=== PATIENT | female | born 1995 | race African-American/Black ===

== ENCOUNTER 2018-09-05 08:19 | Emergency (ER) | payer OTHER ==
[~2018-09-05] VITALS: Ht 160 cm; Wt 77.1 kg
--- NOTE | ~2018-09-05 | EKG ---
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
[2018-09-05] MEDS ORDERED: ACCUNEB SO1.25 MG/1 INH (08:32)
[2018-09-05] MEDS ORDERED: MUCINEX100 MG PO (11:28)
[2018-09-05] MEDS ORDERED: FLONASE 0.05%50 MCG NASAL (11:28)
[2018-09-05 11:35] VITALS: BP 90/54
== END 2018-09-05 11:35 | disposition home or self-care (01) ==
LOC: ER 08:19
DX: J06.9 Acute upper respiratory infection, unspecified (principal); F17.210 Nicotine dependence, cigarettes, uncomplicated

== ENCOUNTER 2019-07-31 08:35 | Emergency (ER) | payer OTHER ==
[~2019-07-31] VITALS: Ht 157.5 cm; Wt 81.7 kg
[~2019-07-31 08:35] MED LIST: ACCUNEB SO1.25 MG/1 INH; FLONASE 0.05%50 MCG NASAL; MUCINEX100 MG PO
[2019-07-31 08:36] VITALS: BP 129/81
== END 2019-07-31 09:40 | disposition home or self-care (01) ==
LOC: ER 08:35
DX: J06.9 Acute upper respiratory infection, unspecified (principal); K21.9 Gastro-esophageal reflux disease without esophagitis; F17.210 Nicotine dependence, cigarettes, uncomplicated

== ENCOUNTER 2020-03-20 12:11 | Emergency (ER) | payer OTHER ==
[~2020-03-20] VITALS: Ht 157.5 cm; Wt 88.5 kg
[2020-03-20 12:27] LABS: URINE BILIRUBIN NEGATIVE (Negative); URINE BLOOD NEGATIVE (Negative); URINE CLARITY CLEAR; URINE COLOR YELLOW; URINE GLUCOSE-RANDOM* NEGATIVE (Negative); URINE KETONES NEGATIVE (Negative); URINE LEUKOCYTES-REFLEX NEGATIVE (Negative); URINE NITRITE-REFLEX NEGATIVE (Negative); URINE PROTEIN (DIPSTICK) NEGATIVE (Negative); URINE SPECIFIC GRAVITY >= 1.030 (1.005-1.035); URINE UROBILINOGEN 0.2 E.U./dl (0.2-1.0)
[2020-03-20] MEDS ORDERED: METFORMIN HCL500 M3 PO (12:31)
[2020-03-20 14:28] LABS: ABSOLUTE NEUTROPHILS 4.3 thou/uL (1.4-8.2); EOSINOPHILS 4.2 % (0.0-3.0); HEMATOCRIT 43.4 % (37.0-47.0); HEMOGLOBIN 14.9 gm/dL (12.0-15.0); LYMPHOCYTES 42.1 % (24.0-44.0); MCH 32.4 pg (26.0-34.0); MCHC 34.3 g/dL (28.0-37.0); MCV 94.6 fL (80.0-100.0); MONOCYTES 5.8 % (1.0-8.0); PLATELET COUNT 231 thou/uL (150-400); POLYS 46.9 % (36.0-66.0); RBC 4.59 mil/uL (4.20-5.00); WBC 9.2 thou/uL (4.0-11.0)
[2020-03-20 14:36] LABS: CALCIUM 8.5 mg/dL (8.5-10.1); CREATININE 0.8 mg/dL (0.6-1.0); POTASSIUM 3.7 mmol/L (3.5-5.1)
[2020-03-20 14:42] LABS: ALBUMIN 3.8 g/dL (3.4-5.0); TOTAL BILIRUBIN 0.2 mg/dL (<0.1-1.0); TOTAL PROTEIN 7.1 g/dL (6.4-8.2)
[2020-03-20] MEDS ORDERED: IBUPROFEN 600600 M1 PO (14:51)
[2020-03-20 15:14] VITALS: BP 126/78
== END 2020-03-20 15:20 | disposition home or self-care (01) ==
LOC: ER 12:11
PROVIDERS: Nurse Practitioner Family
DX: R10.2 Pelvic and perineal pain (principal); R10.30 Lower abdominal pain, unspecified; K62.89 Other specified diseases of anus and rectum; K21.9 Gastro-esophageal reflux disease without esophagitis; F17.210 Nicotine dependence, cigarettes, uncomplicated; Z79.899 Other long term (current) drug therapy

== ENCOUNTER 2020-04-14 10:37 | Emergency (ER) | payer OTHER ==
[~2020-04-14] VITALS: Ht 160 cm; Wt 88.0 kg
[~2020-04-14 10:37] MED LIST changes: +IBUPROFEN 600600 M1 PO; +METFORMIN HCL500 M3 PO
[2020-04-14 12:58] VITALS: BP 138/92
--- NOTE | 2020-04-17 08:23 | EKG ---
[facility] [place] [address] ELECTROCARDIOGRAM REPORT Name: SHANELLE ALAS Room #: [facility]#: [id number] Admission: 04/14/20 Attend Phys: Discharge: 04/14/20 Date of : [birth year] Report #: [id number] THIS REPORT FOR: cc: JILLIAN - Cecelia family physician/PCP JILLIAN - Cecelia family physician/PCP Davion Lamar MD 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
== END 2020-04-14 12:59 | disposition home or self-care (01) ==
LOC: ER 10:37
DX: R07.89 Other chest pain (principal); M54.9 Dorsalgia, unspecified; R42 Dizziness and giddiness; K21.9 Gastro-esophageal reflux disease without esophagitis; E66.9 Obesity, unspecified; F17.210 Nicotine dependence, cigarettes, uncomplicated

== ENCOUNTER 2021-03-31 11:50 | Emergency (ER) | payer OTHER ==
[~2021-03-31] VITALS: Ht 157.5 cm; Wt 83.0 kg
[2021-03-31 12:29] LABS: URINE BILIRUBIN NEGATIVE (Negative); URINE BLOOD 3+ (Negative); URINE CLARITY CLEAR; URINE COLOR YELLOW; URINE GLUCOSE-RANDOM* NEGATIVE (Negative); URINE KETONES NEGATIVE (Negative); URINE LEUKOCYTES-REFLEX TRACE (Negative); URINE NITRITE-REFLEX NEGATIVE (Negative); URINE PROTEIN (DIPSTICK) NEGATIVE (Negative); URINE SPECIFIC GRAVITY >= 1.030 (1.005-1.035); URINE UROBILINOGEN 0.2 E.U./dl (0.2-1.0)
[2021-03-31 12:47] LABS: SQUAMOUS >10 Many /LPF (0-3)
[2021-03-31 12:48] LABS: CASTS None Seen /LPF (None Seen); MUCUS >6 Heavy strn/LPF (None Seen)
[2021-03-31 12:49] LABS: BACTERIA-REFLEX 1-9 Few /HPF (None Seen); CRYSTALS None Seen /LPF (None Seen); URINE RBC 3-10 Few /HPF (NONE SEEN); URINE WBC-REFLEX 6-15 Few /HPF (0-5)
[2021-03-31 13:07] LABS: BASOPHILS 1.3 % (0.0-2.0); EOSINOPHILS 2.3 % (0.0-3.0); HEMATOCRIT 45.1 % (37.0-47.0); HEMOGLOBIN 15.4 gm/dL (12.0-15.0); LYMPHOCYTES 33.3 % (24.0-44.0); MCH 33.3 pg (26.0-34.0); MCV 97.8 fL (80.0-100.0); MONOCYTES 10.3 % (1.0-8.0); PLATELET COUNT 244 thou/uL (150-400); POLYS 52.8 % (36.0-66.0); RBC 4.62 mil/uL (4.20-5.00); RDW 12.8 % (10.5-14.5); WBC 7.6 thou/uL (4.0-11.0)
[2021-03-31 13:23] LABS: CALCIUM 9.5 mg/dL (8.5-10.1); CREATININE 0.7 mg/dL (0.6-1.0); POTASSIUM 4.4 mmol/L (3.5-5.1)
[2021-03-31 13:30] LABS: ALBUMIN 4.2 g/dL (3.4-5.0); TOTAL BILIRUBIN 0.3 mg/dL (0.2-1.0); TOTAL PROTEIN 7.6 g/dL (6.4-8.2)
[2021-03-31] MEDS ORDERED: CEPHALEXIN500 MG PO (14:15)
[2021-03-31 15:10] VITALS: BP 112/66
--- NOTE | 2021-04-01 15:17 | EKG ---
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
== END 2021-03-31 15:10 | disposition home or self-care (01) ==
LOC: ER 11:50
PROVIDERS: Physician Assistant
DX: R42 Dizziness and giddiness (principal); N39.0 Urinary tract infection, site not specified; F17.210 Nicotine dependence, cigarettes, uncomplicated; K21.9 Gastro-esophageal reflux disease without esophagitis

== ENCOUNTER 2021-04-03 04:01 | Emergency (ER) | payer OTHER ==
[~2021-04-03] VITALS: Ht 157.5 cm; Wt 83.9 kg
--- NOTE | ~2021-04-03 | EMS ---
[address] [address] EMS Patient Care Report Name: SHANELLE ALAS Room #: DEP BARNEY Hernández#: [id number] Admission: 04/03/21 Attend Phys: Discharge: 04/03/21 Date of : [birth year] Report #: [id number] THIS REPORT FOR: //name// Report Transmitted: 04/03/2021 07:29 EMS Care Summary [place], [place]/[facility] Incident [id number] @ 04/03/2021 03:21 Incident [address] [place] [address] DET Patient SHANELLE WORLEY Female, 25 Years 1995 Patient Address [address] [place] [id number] Patient History Asthma,Hypertension (HTN), Patient Allergies No known allergies, Patient Medications None Reported, Chief Complaint HYPERVENTILATION Disposition Transported No Lights/[place] Dispatch Reason Breathing Problem Transported To [facility] Narrative M30 RESPONDED TO A BREATHING PROBLEM AT [facility]. M30 ARRIVED ON SCENE TO FIND FEMALE PT WITH P30 CREW ASSESSING PT. PT WAS SITTING ON BENCH IN [facility] CENTER. PT COMPLAINED OF SHORTNESS OF BREATH DUE TO HYPERVENTILATION AND BEING IN A CLOSED CELL FOR THE DURATION OF THE TIME SHE WAS IN CUSTODY WHICH SHE [address] [address] EMS Patient Care Report Name: SHANELLE ALAS Room #: DEP ER Betty#: [id number] Admission: 04/03/21 Attend Phys: Discharge: 04/03/21 Date of : [birth year] Report #: [id number] CANNOT REMEMBER THE EXACT TIME. M30 ASSESSED PT AND VITALS WERE WITHIN RANGE TO BE DEEMED BLS. PTS VITALS WERE TAKEN A SECOND TIME WHILE PD GATHERED PTS ITEMS. VITALS REMAINED STABLE WITH NO CHANGE. PT WAS ASSISSTED IN WALKING TO THE AMBULANCE. PT WAS SECURED TO STRETCHER WITH SEATBELTS AND SIDEREAILS UP. PT WAS REASSESSED DURING TRANSPORT WITH NO CHANGES. [facility] A BED WITH HANDRAILS UP AND CARE WAS TRANSFERED TO NURSING STAFF. Initial Vitals @03:40P: 101,R: 17,BP: 124/92,Pain: 0/10,GCS: 15,SpO2: 99,Revised Trauma: 12, @03:33P: 102,R: 18,BP: 120/91,Pain: 0/10,GCS: 15,CO: 0,SpO2: 99,Revised Trauma: 12, @03:29P: 77,R: 16,BP: 140/95,Pain: 0/10,GCS: 15,SpO2: 100,Revised Trauma: 12, Assessments @03:28MENTAL:Person Oriented,Time Oriented,Event Oriented,Place Oriented,SKIN:HEENT:Head/Face: No Abnormalities,Eyes: No Abnormalities,Neck/Airway: No Abnormalities,LUNG SOUNDS:General: No Abnormalities,Left Upper: No Abnormalities,Right Upper: No Abnormalities,Left Lower: No Abnormalities,Right Lower: No Abnormalities,ABDOMEN:General: No Abnormalities,Left Upper: No Abnormalities,Right Upper: No Abnormalities,Left Lower: No Abnormalities,Right Lower: No Abnormalities,PELVIS//GI:No Abnormalities,EXTREMITIES:Left Arm: No Abnormalities,Right Arm: No Abnormalities,Left Leg: No Abnormalities,Right Leg: No Abnormalities,PULSE:NEURO:No Abnormalities, Impression Hyperventilation Procedures @03:28ALS AssessmentResponse: UnchangedSucceeded@03:29BLS AssessmentResponse: Unchanged Timeline 03:,Call Received 03:,Dispatch Notified 03:,Dispatched 03:23,En Route 03:27,On Scene 03:28,At Patient 03:28,ALS Assessment,Response: UnchangedSucceeded, 03:,BLS Assessment,Response: Unchanged 03:,BP: 140/95 M,PULSE: 77,RR: 16 R,SPO2: 100 Ox,ETCO2: ,BG: ,PAIN: 0,GCS: 15, 03:33,BP: 120/91 M,PULSE: 102,RR: 18 R,SPO2: 99 Ox,ETCO2: ,BG: ,PAIN: 0,GCS: 15, [facility] [address] [place] [address] EMS Patient Care Report Name: BISHOPSHANELLE Room #: [facility] BARNEY Hernández#: [id number] Admission: 04/03/21 Attend Phys: Discharge: 04/03/21 Date of : [birth year] Report #: [id number] 03:40,BP: 124/92 M,PULSE: 101,RR: 17 R,SPO2: 99 Ox,ETCO2: ,BG: ,PAIN: 0,GCS: 15, 03:45,Depart Scene 03:57,At Destination 04:13,Call Closed Disclaimer v1.1 Copyright 2020 [employer] This EMS Care Summary contains data elements from the applicable legal record (which may be displayed differently). It is designed to provide pertinent information for the following purposes: continuity of care, clinical quality, and state data reporting. The complete legal record is available to ED staff and administrators of the receiving hospital in [employer] Patient Tracker. All data is provided "as is."
[~2021-04-03 04:01] MED LIST changes: +CEPHALEXIN500 MG PO
[2021-04-03 05:26] VITALS: BP 116/76
== END 2021-04-03 05:30 | disposition home or self-care (01) ==
LOC: ER 04:01
DX: F43.9 Reaction to severe stress, unspecified (principal); R06.02 Shortness of breath; R53.83 Other fatigue; R05 Cough; K21.9 Gastro-esophageal reflux disease without esophagitis; E66.9 Obesity, unspecified; F17.210 Nicotine dependence, cigarettes, uncomplicated; Z87.42 Personal history of other diseases of the female genital tract; Z68.33 Body mass index [BMI] 33.0-33.9, adult